=== PATIENT | male | born 1940 | race Caucasian/White ===

== ENCOUNTER 2018-07-08 19:12 | Emergency (ER) | payer OTHER, MEDICARE ==
[~2018-07-08] VITALS: Ht 188 cm; Wt 104.3 kg
[2018-07-08] MEDS ORDERED: WARF2.5 PO (19:35)
[2018-07-08] MEDS ORDERED: LISI5 PO (19:36)
[2018-07-08] MEDS ORDERED: FINA5 PO (19:37)
[2018-07-08] MEDS ORDERED: TAMS.4ER PO (19:37)
[2018-07-08] MEDS ORDERED: GLIP10 PO (19:37)
[2018-07-08] MEDS ORDERED: IRON (19:38)
[2018-07-08] MEDS ORDERED: CALCIUM (19:38)
[2018-07-08] MEDS ORDERED: CHOL10002 (19:39)
== END 2018-07-08 21:29 | disposition home or self-care (01) ==
LOC: ER 19:12
DX: S01.112A Laceration without foreign body of left eyelid and periocular area, initial encounter (principal); E11.9 Type 2 diabetes mellitus without complications; I10 Essential (primary) hypertension; I48.91 Unspecified atrial fibrillation; Z79.84 Long term (current) use of oral hypoglycemic drugs; Z79.899 Other long term (current) drug therapy; Z79.01 Long term (current) use of anticoagulants; W10.1XXA Fall (on)(from) sidewalk curb, initial encounter
CPT/HCPCS: 12013; 70450; 72125; 90471; 90714; 99284-25